=== PATIENT | female | born 1990 | race Caucasian/White ===

== ENCOUNTER 2017-02-18 04:56 | Inpatient (IN) | payer MEDICAID ==
[~2017-02-18] VITALS: Ht 160 cm; Wt 89.0 kg
--- NOTE | 2017-02-18 05:13 | NUR ---
DR. SMITH AT BEDSIDE FOR MSE.
--- NOTE | 2017-02-18 05:15 | NUR ---
PT PRESENTS TO ED WITH C/O HEADACHE AND BODY ACHES X2 DAYS. PT DESCRIBES HEADACHE PRESSURE LIKE. PT REPORTS N/V/D X2 DAYS WITH FEVER. PT REPORTS TAKING TYLENOL AT HOME FOR FEVER. PT DENIES ANY DIZZINESS. PT DENIES DYSURIA/HEMATURIA. RESPIRATIONS EVEN AND UNLABORED. NO ACUTE DISTRESS NOTED. BED IN LOW POSITION. CALL LIGHT WITHIN REACH.
--- NOTE | 2017-02-18 05:28 | NUR ---
LAB AT BEDSIDE.
[2017-02-18 05:40] LABS: BASOPHIL % 0.3 % (0-2); PLATELET COUNT 167 x10^3mcL (130-400); RED CELL DISTRIBUTION WIDTH 12.9 % (11.5-14.5)
[2017-02-18 05:52] LABS: CALCIUM 8.4 mg/dL (8.5-10.1); CARBON DIOXIDE 25.4 mmol/L (21-32); CHLORIDE SERUM 103 mmol/L (98-107); GFR1 > 60 mL/min; GLUCOSE SERUM 109 mg/dL (74-106); POTASSIUM SERUM 3.7 mmol/L (3.5-5.1); SODIUM SERUM 136 mmol/L (136-145)
[2017-02-18 06:02] LABS: ALBUMIN 3.6 g/dL (3.4-5.0); ALKALINE PHOSPHATASE 67 U/L (46-116); ALT/SGPT 23 U/L (14-59); AST/SGOT 18 U/L (15-37); BILIRUBIN TOTAL 0.37 mg/dL (0.20-1.00); TOTAL PROTEIN, SERUM 7.2 g/dL (6.4-8.2)
--- NOTE | 2017-02-18 06:02 | NUR ---
PT C/O HEADACHE 05/24 AT THIS TIME, MD NOTIFIED. WILL MEDICATE PER MD ORDERS.
[2017-02-18 07:04] LABS: microscopic required? NO
[2017-02-18 07:13] LABS: UA SPECIFIC GRAVITY <=1.005 (1.005-1.035); urine erythrocyte NEGATIVE (NEGATIVE)
--- NOTE | 2017-02-18 07:28 | NUR ---
REPORT TAKEN FROM FRITZ WILLIS TO ASSUME CARE OF PT. UPON ENTERING THE ROOM PT IS SITTING ON GURNEY IN A POSITION OF COMFORT. PT STS SHE IS FEELING BETTER AT THIS TIME. PT REMAINS ON SCUTCHER TENDER WITH CALL LIGHT IN REACH, WILL CONTINUE TO MONITOR
--- NOTE | 2017-02-18 07:34 | NUR ---
DR RIOS MADE AWARE OF PTS BP AND HEART RATE.
--- NOTE | 2017-02-18 07:48 | NUR ---
PT HAS NORMAL SALINE INFUSING WIDE OPEN PER MD ORDERS. PT REMAINS ON HEATING AND VENTILATION ENGINEER WITH CALL LIGHT IN REACH.
[2017-02-18 08:00] LABS: AMPHETAMINE QUAL UR NONE DETECTED (NEG <=1000)
--- NOTE | 2017-02-18 08:26 | NUR ---
PT RESTING ON GURNEY IN A POSITION OF COMFORT. PT STS SHE IS STILL FEELING BETTER AT THIS TIME. PT REMAINS ON BOTTLING EQUIPMENT SALES REPRESENTATIVE WITH CALL LIGHT IN REACH
--- NOTE | 2017-02-18 10:13 | NUR ---
REPORT GIVEN TO RISSA WILLIS TO ASSUME CARE OF PT PTS PRIMARY NURSE.
[2017-02-18 10:26] LABS: T4(THYROXINE) 6.5 ug/dL (4.7-13.3)
[2017-02-18 10:31] VITALS: BP 99/63
[2017-02-18 10:39] VITALS: BP 99/63
[2017-02-18 10:45] LABS: PHOSPHOROUS 2.8 mg/dL (2.5-4.9)
[2017-02-18 10:53] LABS: CHOLESTEROL/HDL RATIO 2.7
[2017-02-18 10:56] LABS: T3 TOTAL 0.65 ng/mL
--- NOTE | 2017-02-18 11:07 | NUR ---
RECIEVED PT FROM ED. PT IS AWAKE, ALERT, AND ORIENTED. HAS NO COMPLAINT OF PAIN, SOB, OR DIZZINESS. RESPONDS WELL TO QUESTION AND ANSWER. CLEAR ELZA LUNG FIELD, SYMMETRICAL CHEST EXPANSION AND UNLABORED. ACTIVE BOWEL SOUNDS NOTED. NON DISTENDED ABDOMEN. TELE #5 WITH SINUS TACHYCARDIA. NO COMPLAINT OF CP. SKIN INTACT. SIDE RAILS UP, CALL LIGHT WITHIN REACH, WILL CONTINUE TO MONITOR
[2017-02-18 11:30] LABS: FREE THYROXINE INDEX 1.8 ug/dL (1.4-4.5)
--- NOTE | 2017-02-18 13:00 | NUR ---
DR. FINE AT BEDSIDE TALKING AND ASSESSING THE PATIENT
[2017-02-18 15:06] VITALS: BP 102/63
--- NOTE | 2017-02-18 17:42 | NUR ---
prn medication given for a temp of 102.2. cooling measures initiated
--- NOTE | 2017-02-18 18:08 | NUR ---
PRN MEDICATION GIVEN FOR SORE THROAT
[2017-02-18 18:15] VITALS: BP 119/69
--- NOTE | 2017-02-18 20:00 | NUR ---
AWAKE AND VERBALLY RESPONSIVE. ABLE TO MAKE NEEDS KNOWN. RESPIRATION EVEN AND UNLABORED. DENIES ANY PAIN/DISCOMFORT QT THIS TIME. PLACED CALL LIGHT WITHIN REACH, INSTRUCTED TO CALL FOR ANY ASSISTANCE NEEDED AND VERBALIZED UNDERSTANDING.
[2017-02-18 22:47] VITALS: BP 117/67
[2017-02-18] MEDS ORDERED: NEXPLANON68 MG ID (23:06)
--- NOTE | 2017-02-19 00:10 | NUR ---
CONTINUES ON ATB IVPB WITHOUT ADVERSE REACTION NOTED. STILL WITH INTERMITTENT NAUSEA RELIEVED BY ZOFRAN IV. NO VOMITING AT THIS TIME. WILL CONTINUE TO MONITOR.
[2017-02-19 06:56] LABS: BASOPHIL % 0.2 % (0-2); PLATELET COUNT 139 x10^3mcL (130-400); RED CELL DISTRIBUTION WIDTH 12.9 % (11.5-14.5)
--- NOTE | 2017-02-19 06:56 | NUR ---
STILL CALIMED WITH INTERMITTENT NAUSEA RELIEVED BY ZOFRAN IV. KEPT CLEAN AND DRY. ALL NEEDS ATTENDED.
[2017-02-19 07:06] LABS: ALBUMIN 2.8 g/dL (3.4-5.0); CALCIUM 7.8 mg/dL (8.5-10.1); CARBON DIOXIDE 25.1 mmol/L (21-32); CHLORIDE SERUM 107 mmol/L (98-107); CREATININE SERUM 0.8 mg/dL (0.6-1.0); GFR1 > 60 mL/min; GLUCOSE SERUM 94 mg/dL (74-106); POTASSIUM SERUM 3.9 mmol/L (3.5-5.1); SODIUM SERUM 140 mmol/L (136-145)
--- NOTE | 2017-02-19 07:30 | NUR ---
PATIENT IS SITTING UP IN BED. AWAKE, ALERT AND ORIENTED. DENIES ANY PAIN OR DISOCMFORT. IVF INFUSING WELL, SITE PATENT. TELE 5 ST HR 105. DENIES ANY CHEST PAIN. AFEBRILE AT THIS TIME. DENIES ANY N/V/D. NO EDEMA NOTED. SCD'S IN PLACE. RESP EVEN AND UNLABORED, LUNGS CLEAR ON ROOM AIR. VOIDING WELL. LBM YESTERDAY, DIARRHEA PER PATIENT. WILL CONTINUE TO MONITOR.
--- NOTE | 2017-02-19 08:40 | NUR ---
DR FLORES AND MEDICAL TEAM INTO SEE PATIENT AND DISCUSS PLAN OF CARE.
[2017-02-19 08:52] VITALS: BP 98/63
[2017-02-19 12:52] VITALS: BP 94/61
--- NOTE | 2017-02-19 15:57 | NUR ---
PATIENT REMAINS IN BED, AWAKE ALERT AND ORIENTED, MEDICATED X 1 WITH TYLENOL PO FOR C/O H/A WITH GOOD RELIEF. DENIES ANY H/A OR PAIN AT THIS TIME. TOLERATED FULL LIQUID DIET WELL. DENIES ANY N/V/D. PATIENT HAS BEEN AFEBRILE. WILL CONTINUE TO MONITOR.
[2017-02-19 16:22] VITALS: BP 105/73
--- NOTE | 2017-02-19 18:20 | NUR ---
PATIENT C/O HAVING HEARTBURN. DR FINE NOTIFIED AND NEW ORDER RECEIVED FOR PROTONIX IV. WILL BE GIVEN BY MAITE WILLIS ORDERED. NEW ORDER TO ADVANCE DIET TO REGULAR. PATIENT SITTING UP IN BED. DENIES ANY N/V/D. ENCOURAGED TO GET OOB AND AMBULATE THE HALLWAYS. WILL ENDORSE TO [facility] NURSE.
--- NOTE | 2017-02-19 18:27 | NUR ---
PATIENT HAS BEEN ST ON TELE 5 THIS SHIFT. HR FROM 100-118. REMAINS AFEBRILE.
--- NOTE | 2017-02-19 18:34 | NUR ---
I HAVE REVIEWED THE DATA COLLECTION BY EULALIO (NAME): SCOTT ALSTON LVN ENTERED ON (DATE/TIME): 02/19/17 I CONCUR WITH THE DATA AND ANY EXCEPTIONS OR COMMENTS ARE LISTED BELOW:
--- NOTE | 2017-02-19 18:34 | NUR ---
PROTONIX GIVEN PER MAR FOR HEARTBURN. NO OTHER NEEDS AT THIS TIME.
--- NOTE | 2017-02-19 20:00 | NUR ---
RECEIVED PT IN BED AWAKE ALERT AND ORIENTED. PT ON TELE # [address] ON THE MONITOR WITH A HR OF 101. NO C/O CHEST PAIN NOTED. PULSES PALPABLE, NO EDEMA NOTED. LUNG SOUNDS CLEAR. BOWEL SOUNDS ACTIVE. PT VOIDS WITHOUT DIFFICULTY. SKIN INTACT. NO C/O PAIN NOTED. IV INFUSING WELL AT NS @110/HR. NO INFILTRATION NOTED. INSTRUCTED PT TO USE CALL LIGHT IF NEEDS ASSISTANCE WITH ANYTHING. CALL LIGHT IN REACH. WILL MONITOR.
[2017-02-19 20:46] VITALS: BP 105/65
--- NOTE | 2017-02-20 | NUR ---
PT RESTING AT THIS TIME WITH NO DISTRESS NOTED. IV INFUSING WELL. WILL MONITOR PT.
--- NOTE | 2017-02-20 01:20 | NUR ---
PT C/O HEADACHE AND RECEIVED TYLENOL ORDERED. WILL MONITOR PT.
--- NOTE | 2017-02-20 03:07 | NUR ---
PT RESTING COMFORTABLY AT THIS TIME, NO HAD PAIN NOTED. TYLENOL HAS BEEN EFFECTIVE. WILL MONITOR PT.
[2017-02-20 05:18] VITALS: BP 103/64
--- NOTE | 2017-02-20 05:45 | NUR ---
PT SLEEPING AT THIS TIME. NO DISTRESS NOTED. RESPIRATIONS EVEN AND UNLABORED. NO PAIN AT THIS TIME. IV INFUSING WELL, NO INFILTRATION NOTED. PT IS STABLE AT THIS TIME, WILL ENDORSE TO THE A.M SHIFT NURSE.
[2017-02-20 06:37] LABS: BASOPHIL % 0.3 % (0-2); PLATELET COUNT 151 x10^3mcL (130-400); RED CELL DISTRIBUTION WIDTH 12.5 % (11.5-14.5)
[2017-02-20 06:49] LABS: CALCIUM 8.2 mg/dL (8.5-10.1); CARBON DIOXIDE 24.8 mmol/L (21-32); CHLORIDE SERUM 105 mmol/L (98-107); CREATININE SERUM 0.8 mg/dL (0.6-1.0); GFR1 > 60 mL/min; GLUCOSE SERUM 86 mg/dL (74-106); POTASSIUM SERUM 3.7 mmol/L (3.5-5.1); SODIUM SERUM 141 mmol/L (136-145)
--- NOTE | 2017-02-20 08:04 | NUR ---
AWAKE AND OX4. NO SOB. DENIES PAIN. VERBALIZED RELIEF OF HEADACHE AFTER TYLENOL GIVEN BY SCRAPER OPERATOR. DENIES CP, N/V, DIARRHEA. SHE REPORTS THAT SHE'S BEEN UP AND ABOUT AND HAD AMBULATED IN THE HALLWAY. IVF ONGOING ORDERED. RFA SITE PATENT AND WITHOUT INFILTRATION. SAFETY AND FALL PRECUTION REINFORCED. WILL CONTINUE TO MONITOR STATUS. .
[2017-02-20 09:35] VITALS: BP 109/72
[2017-02-20] MEDS ORDERED: ZOFRAN ODT4 MG PO (12:01)
[2017-02-20 13:42] VITALS: BP 107/68
--- NOTE | 2017-02-20 16:00 | NUR ---
PT IS GOING HOME PER MD ORDER. DC INSTRUCTIONS GIVEN TO PT WITH VERBAL UNDERSTANDING. COPIES PROVIDED. PRESCRIPTION AND WORK EXCUSE NOTE GIVEN TO PT. RFA IVF ACCESS TAKEN OUT AND CATH IS INTACT. ZOVIRAX APPLIED ON HER AFFECTED AREA (LIPS) FOR THE FEVER SORES.
== END 2017-02-20 16:40 | disposition home or self-care (01) | DRG 249 ==
LOC: ED 04:56 → DU 09:32
PROVIDERS: Emergency Medicine; Family Medicine; ADMIT Family Medicine
DX: K52.9 Noninfective gastroenteritis and colitis, unspecified (principal); E43 Unspecified severe protein-calorie malnutrition; E83.51 Hypocalcemia; E86.0 Dehydration; R00.0 Tachycardia, unspecified; E78.5 Hyperlipidemia, unspecified; Z68.34 Body mass index [BMI] 34.0-34.9, adult
CPT/HCPCS: 80307; 83880; 84439; C9113; J1885; J1956; J2405; J3490; J7030; Q0092

== ENCOUNTER 2017-09-04 15:21 | Emergency (ER) | payer MEDICAID ==
[~2017-09-04] VITALS: Ht 162.6 cm; Wt 78.0 kg
[~2017-09-04 15:21] MED LIST: NEXPLANON68 MG ID; ZOFRAN ODT4 MG PO
[2017-09-04 15:32] VITALS: BP 121/71
== END 2017-09-04 17:44 | disposition left against medical advice (07) ==
LOC: ED 15:21
DX: Z53.21 Procedure and treatment not carried out due to patient leaving prior to being seen by health care provider (principal)

== ENCOUNTER 2017-11-10 16:54 | Emergency (ER) | payer MEDICAID ==
[~2017-11-10] VITALS: Ht 162.6 cm; Wt 77.6 kg
[2017-11-10 17:14] VITALS: Ht 162.6 cm; Wt 77.6 kg
[2017-11-10 22:49] LABS: BASOPHIL % 0.3 % (0-2); PLATELET COUNT 183 x10^3mcL (130-400); RED CELL DISTRIBUTION WIDTH 12.1 % (11.5-14.5)
[2017-11-10 23:06] LABS: CALCIUM 8.7 mg/dL (8.5-10.1); CARBON DIOXIDE 26.3 mmol/L (21-32); CHLORIDE SERUM 104 mmol/L (98-107); CREATININE SERUM 0.6 mg/dL (0.6-1.0); GFR1 > 60 mL/min; GLUCOSE SERUM 90 mg/dL (74-106); POTASSIUM SERUM 3.8 mmol/L (3.5-5.1); SODIUM SERUM 139 mmol/L (136-145)
[2017-11-10 23:20] LABS: FREE T4 0.97 ng/dL (0.76-1.46)
[2017-11-11 00:35] VITALS: BP 121/75
== END 2017-11-11 00:35 | disposition home or self-care (01) ==
LOC: ED 16:54
PROVIDERS: Emergency Medicine
DX: R55 Syncope and collapse (principal); B34.9 Viral infection, unspecified; H66.91 Otitis media, unspecified, right ear
CPT/HCPCS: 36415; 84439; 87804

== ENCOUNTER 2018-05-24 05:45 | Emergency (ER) | payer MEDICAID ==
[~2018-05-24] VITALS: Ht 165.1 cm; Wt 80.3 kg
[2018-05-24 05:54] VITALS: Ht 165.1 cm; Wt 80.3 kg
[2018-05-24 09:21] VITALS: BP 122/77
== END 2018-05-24 09:21 | disposition home or self-care (01) ==
LOC: ED 05:45
DX: F41.9 Anxiety disorder, unspecified (principal); R00.0 Tachycardia, unspecified

== ENCOUNTER 2019-11-11 21:26 | Emergency (ER) | payer SELFPAY ==
[~2019-11-11] VITALS: Ht 162.6 cm; Wt 88.9 kg
[2019-11-11 21:48] VITALS: Ht 162.6 cm; Wt 88.9 kg
[2019-11-12 02:10] VITALS: BP 100/61
== END 2019-11-12 02:10 | disposition home or self-care (01) ==
LOC: ED 21:26
DX: B34.9 Viral infection, unspecified (principal)
CPT/HCPCS: 87804; Q0092